=== PATIENT | female | born 1950 | race Caucasian/White ===

== ENCOUNTER 2017-12-05 23:35 | Emergency (ER) | payer OTHER ==
[2017-12-06 01:17] LABS: CALCIUM 8.4 mg/dL (8.5-10.1); CARBON DIOXIDE 27.6 mmol/L (21-32); CHLORIDE SERUM 104 mmol/L (98-107); CREATININE SERUM 0.5 mg/dL (0.6-1.0); GFR1 > 60 mL/min; GLUCOSE SERUM 118 mg/dL (74-106); POTASSIUM SERUM 3.3 mmol/L (3.5-5.1); SODIUM SERUM 140 mmol/L (136-145)
[2017-12-06 01:22] LABS: ALKALINE PHOSPHATASE 73 U/L (46-116); ALT/SGPT 33 U/L (14-59); AST/SGOT 26 U/L (15-37); BILIRUBIN TOTAL 0.57 mg/dL (0.20-1.00); LIPASE 41 IU/L (73-393); TOTAL PROTEIN, SERUM 6.3 g/dL (6.4-8.2)
[2017-12-06 01:23] LABS: ALBUMIN 2.6 g/dL (3.4-5.0)
[2017-12-06 01:23] LABS: microscopic required? YES; urine erythrocyte TRACE (NEGATIVE)
[2017-12-06 01:26] LABS: BASOPHIL % 0.4 % (0-2); PLATELET COUNT 251 x10^3mcL (130-400); RED CELL DISTRIBUTION WIDTH 14.2 % (11.5-14.5)
[2017-12-06 03:08] VITALS: BP 118/75
== END 2017-12-06 03:08 | disposition home or self-care (01) ==
LOC: ED 23:35
PROVIDERS: Emergency Medicine
DX: K59.00 Constipation, unspecified (principal); D64.9 Anemia, unspecified; Z90.49 Acquired absence of other specified parts of digestive tract
CPT/HCPCS: J1885; J2405; J7030

== ENCOUNTER 2017-12-06 11:17 | Emergency (ER) | payer OTHER ==
[~2017-12-06] VITALS: Ht 165.1 cm; Wt 77.6 kg
[2017-12-06 11:38] VITALS: BP 115/70
== END 2017-12-06 12:29 | disposition home or self-care (01) ==
LOC: ED 11:17
DX: R33.9 Retention of urine, unspecified (principal); Z85.850 Personal history of malignant neoplasm of thyroid; Z90.89 Acquired absence of other organs

== ENCOUNTER 2017-12-08 20:34 | Emergency (ER) | payer OTHER ==
[~2017-12-08] VITALS: Ht 165.1 cm; Wt 77.6 kg
[2017-12-08 20:52] VITALS: Ht 165.1 cm; Wt 77.6 kg
[2017-12-08 21:16] LABS: microscopic required? YES; urine erythrocyte 2+ (NEGATIVE)
[2017-12-09 00:43] LABS: BASOPHIL % 0.3 % (0-2)
[2017-12-09 00:45] VITALS: BP 114/94
[2017-12-09 00:45] LABS: PLATELET COUNT 460 x10^3mcL (130-400); RED CELL DISTRIBUTION WIDTH 14.8 % (11.5-14.5)
[2017-12-09 01:01] LABS: CALCIUM 8.7 mg/dL (8.5-10.1); CARBON DIOXIDE 28.6 mmol/L (21-32); CHLORIDE SERUM 104 mmol/L (98-107); CREATININE SERUM 0.5 mg/dL (0.6-1.0); GFR1 > 60 mL/min; GLUCOSE SERUM 109 mg/dL (74-106); POTASSIUM SERUM 3.6 mmol/L (3.5-5.1); SODIUM SERUM 141 mmol/L (136-145)
[2017-12-09 01:06] LABS: ALBUMIN 2.9 g/dL (3.4-5.0); ALKALINE PHOSPHATASE 95 U/L (46-116); ALT/SGPT 37 U/L (14-59); AST/SGOT 32 U/L (15-37); BILIRUBIN TOTAL 0.31 mg/dL (0.20-1.00); C REACTIVE PROTEIN 4.3 mg/dL (<=0.9); TOTAL PROTEIN, SERUM 6.6 g/dL (6.4-8.2)
[2017-12-09 01:59] LABS: ERYTHROCYTE SED RATE 57 mm/hr (0-30)
== END 2017-12-09 00:45 | disposition short-term general hospital (02) ==
LOC: ED 20:34
PROVIDERS: Emergency Medicine
DX: R33.9 Retention of urine, unspecified (principal); Z90.49 Acquired absence of other specified parts of digestive tract

== ENCOUNTER 2017-12-12 12:33 | Emergency (ER) | payer OTHER ==
[~2017-12-12] VITALS: Ht 170.2 cm; Wt 77.6 kg
[2017-12-12 12:52] VITALS: Ht 170.2 cm; Wt 77.6 kg
[2017-12-12 13:44] VITALS: BP 110/59
== END 2017-12-12 13:44 | disposition home or self-care (01) ==
LOC: ED 12:33
DX: R33.9 Retention of urine, unspecified (principal); Z86.39 Personal history of other endocrine, nutritional and metabolic disease